=== PATIENT | female | born 1940 | race Caucasian/White ===

== ENCOUNTER 2024-10-27 03:11 | Emergency (ER) | payer OTHER, MEDICARE ==
[2024-10-27 03:20] VITALS: TEMP 98.2; BMI 21.0
[2024-10-27] MEDS ORDERED: ACETAMINOPHEN INJECTION 100 ML ONE (03:39)
[2024-10-27] MEDS ORDERED: ONDANSETRON 4 MG/2 ML VIAL ONE (03:52)
[2024-10-27] MEDS: ONDANSETRON 4 MG/2 ML VIAL IVPUSH ONE (03:56)
[2024-10-27] MEDS: ACETAMINOPHEN 1000 MG/100 ML BAG IVPB ONE (03:56)
[2024-10-27] MEDS: SODIUM CHLORIDE 0.9% 500 ML INFUS.BAG IV ONE (03:56)
[2024-10-27 03:59] LABS: ABSOLUTE IMMATURE GRANULOCYTES 0.03 x10^3/uL (0.0-0.031); BASOPHILS # 0.05 x10^3/uL (0.01-0.08); EOSINOPHIL % 2.4 % (0.7-5.8); EOSINOPHILS # 0.17 x10^3/uL (0.04-0.36); HEMATOCRIT 43.2 % (34.1-44.9); HEMOGLOBIN 14.1 g/dL (11.2-15.7); MCHC 32.6 g/dl (32.2-35.5); MEAN CELL VOLUME 90.9 fl (79.4-94.8); MEAN PLT VOLUME 9.7 fl (9.4-12.3); MONOCYTE # 0.41 x10^3/uL (0.24-0.86); MONOCYTE % 5.8 % (4.7-12.5); PLATELET COUNT 282 x10^3/uL (182-369); RDW 13.4 % (12.5-17.0)
[2024-10-27 04:03] LABS: EPI CELLS 9 /uL (0-25.1); HYALINE CASTS 0 /uL (0-3.1); PH,URINE 7.5 (5.0-8.0); URINE APPEARANCE CLEAR; URINE BACTERIA 80 /uL (0-1359); URINE BILIRUBIN NEGATIVE (NEGATIVE); URINE COLOR YELLOW; URINE GLUCOSE (UA) NEGATIVE (NEGATIVE); URINE KETONE NEGATIVE (NEGATIVE); URINE LEUK ESTERASE 1+ (NEGATIVE); URINE NITRITE NEGATIVE (NEGATIVE); URINE PROTEIN NEGATIVE (NEGATIVE); URINE RBC 45 /uL (0-23.9); URINE UROBILINOGEN 0.2 mg/dL (0.2-1.0); URINE WBC 25 /uL (0-25.8)
[2024-10-27 04:22] LABS: POTASSIUM 4.3 mmol/L (3.5-5.1)
[2024-10-27 04:25] LABS: BLOOD UREA NITROGEN 31.3 mg/dL (7-18)
[2024-10-27 04:28] LABS: CREATININE 1.3 mg/dL (0.55-1.3)
[2024-10-27 04:30] LABS: BILIRUBIN,TOTAL 0.6 mg/dL (0.2-1)
[2024-10-27 05:22] VITALS: BP 156/78; PULSE 88; RESP 18
== END 2024-10-27 05:22 | disposition home or self-care (01) ==
LOC: JER 03:11
PROC: 3E033NZ Introduction of Analgesics, Hypnotics, Sedatives into Peripheral Vein, Percutaneous Approach (ICD-10-PCS; principal; 2024-10-27)
PROC: 3E033GC Introduction of Other Therapeutic Substance into Peripheral Vein, Percutaneous Approach (ICD-10-PCS; 2024-10-27)
DX: N20.0 Calculus of kidney (principal); R94.31 Abnormal electrocardiogram [ECG] [EKG]
CPT/HCPCS: 36415; 80053; 81003; 83605; 83690; 84484; 85025; 87086; 93005; 93010; 99284-25